=== PATIENT | female | born 1940 | race Caucasian/White ===

== ENCOUNTER → 2017-04-12 | Outpatient (CLI) | payer OTHER | END | disposition home or self-care (01) | LOC: NUC 07:39 | DX: R10.13 Epigastric pain (principal); R19.7 Diarrhea, unspecified; K30 Functional dyspepsia | CPT/HCPCS: 78226; A9537 ==

== ENCOUNTER 2017-07-04 19:00 | Inpatient (IN) | payer OTHER ==
[~2017-07-04] VITALS: Ht 152.4 cm; Wt 60.6 kg
[2017-07-04] MEDS ORDERED: PANTOPRAZOLE SO40 MG PO (19:11)
[2017-07-04 20:33] LABS: EOSINOPHIL (%) 0.1 % (0-5); HEMATOCRIT 41.7 % (36.0-46.0); IMMATURE GRANULOCYTE (%) 0.6 % (0.0-0.7); IMMATURE GRANULOCYTE COUNT 0.1 K/uL; LYMPHOCYTE COUNT 0.5 K/uL (1.0-2.8); MCH 30.6 PG (29.0-34.0); MCV 87.4 FL (83-99); MEAN PLAT.VOLUME 8.9 uM^3 (9.5-12.4); MONOCYTE (%) 2.9 % (3-12); MONOCYTE COUNT 0.4 K/uL (0-0.8); NEUTROPHIL (%) 92.7 % (45-76); PLATELET COUNT 213 K/uL (156-360); RBC DIS.WIDTH-SD 41.5 % (39-53); RED BLOOD COUNT 4.77 M/uL (3.80-5.20)
[2017-07-04 20:42] LABS: CHLORIDE 104 mEq/L (99-109); POTASSIUM 3.2 mEq/L (3.7-5.4); SODIUM 137 mEq/L (136-147)
[2017-07-04 20:44] LABS: GLUCOSE 175 mg/dL (70-99)
[2017-07-04 20:46] LABS: ANION GAP 13 MEQ/L (2-14); TOTAL BILIRUBIN 0.9 mg/dL (0.0-1.0)
[2017-07-04 20:48] LABS: ALKALINE PHOSPHATASE 80 IU/L (3-129); GFR ESTIMATE (CALCULATED) 58 mL/min/
[2017-07-04 20:49] LABS: UREA NITROGEN (BUN) 14 mg/dL (9-23)
[2017-07-04 20:54] LABS: TROP-I INTERPRETATION NEGATIVE; TROPONIN-I < 0.01 ng/mL (0.0-0.30)
[2017-07-04 23:29] LABS: ADD MIUA? YES; BILIRUBIN NEGATIVE; BLOOD NEGATIVE; COLOR STRAW ((YELLOW)); GLUCOSE (STRIP) NEGATIVE; KETONES NEGATIVE; LEUKOCYTES TRACE; NITRITE NEGATIVE; PROTEIN (STRIP) NEGATIVE; SPECIFIC GRAVITY 1.005 (1.000-1.030); UROBILINOGEN 0.2 MG/DL (0.2-1.0)
[2017-07-04 23:29] LABS: CARBON DIOXIDE (BICARBONATE) 23.4 MEQ/L (20-31)
[2017-07-04] MEDS ORDERED: CEFDINIR300 MG PO (23:35)
[2017-07-04] MEDS ORDERED: COLACE100 MG PO (23:35)
[2017-07-04 23:45] LABS: BACTERIA NONE SEEN /HPF; EPITHELIAL CELLS RARE /HPF; MUCUS TRACE /LPF; RED BLOOD CELLS 0-5 /HPF (0-5); UCUL ADDED? NO; WHITE BLOOD CELLS 0-5 /HPF (0-5)
[2017-07-05 00:37] VITALS: BP 130/60
[2017-07-05 04:03] VITALS: BP 117/58
[2017-07-05 06:18] LABS: POINT-OF-CARE METER ID UU14208750
[2017-07-05 07:31] VITALS: BP 132/61
[2017-07-05 09:32] LABS: HEMATOCRIT 38.6 % (36.0-46.0); MCH 30.1 PG (29.0-34.0); MCHC 34.5 G/DL (30.0-36.0); MCV 87.3 FL (83-99); PLATELET COUNT 232 K/uL (156-360); RBC DIS.WIDTH-CV 13.1 % (11.8-14.6); RBC DIS.WIDTH-SD 41.7 % (39-53); RED BLOOD COUNT 4.42 M/uL (3.80-5.20); WHITE BLOOD COUNT 11.1 K/uL (4.1-10.2)
[2017-07-05 09:59] LABS: ANION GAP 11 MEQ/L (2-14); CHLORIDE 108 MEQ/L (99-109); GFR ESTIMATE (CALCULATED) > 59 mL/min/; GLUCOSE 170 mg/dL (70-99); POTASSIUM 3.8 MEQ/L (3.7-5.4); SAMPLE HEMOLYSIS CHECK 0; SAMPLE ICTERIC CHECK 0; SAMPLE LIPEMIA CHECK 0; SODIUM 141 MEQ/L (136-147); UREA NITROGEN (BUN) 12 mg/dL (9-23)
[2017-07-05 10:17] LABS: Estimated Average Glucose 105 mg/dL (70-123); HEMOGLOBIN A1c (GLYCOHEMOGLOB) 5.3 % HGB (Below 5.7)
[2017-07-05 11:39] VITALS: BP 121/57
[2017-07-05 15:18] VITALS: BP 108/54
[2017-07-05 19:10] VITALS: BP 123/60
[2017-07-06] VITALS (7 sets, daily range): BP systolic 99–144; BP diastolic 53–68
[2017-07-06 06:58] LABS: MCH 31.5 PG (29.0-34.0); MCHC 35.3 G/DL (30.0-36.0); MCV 89.2 FL (83-99); MEAN PLAT.VOLUME 9.5 uM^3 (9.5-12.4); PLATELET COUNT 226 K/uL (156-360); RBC DIS.WIDTH-CV 13.2 % (11.8-14.6); RBC DIS.WIDTH-SD 43.3 % (39-53); RED BLOOD COUNT 4.26 M/uL (3.80-5.20); WHITE BLOOD COUNT 15.4 K/uL (4.1-10.2)
[2017-07-06 07:19] LABS: ANION GAP 7 MEQ/L (2-14); CHLORIDE 105 MEQ/L (99-109); GFR ESTIMATE (CALCULATED) 58 mL/min/; GLUCOSE 140 mg/dL (70-99); POTASSIUM 4.2 MEQ/L (3.7-5.4); SAMPLE HEMOLYSIS CHECK 0; SAMPLE ICTERIC CHECK 0; SAMPLE LIPEMIA CHECK 0; SODIUM 141 MEQ/L (136-147); UREA NITROGEN (BUN) 17 mg/dL (9-23)
[2017-07-07 04:26] VITALS: BP 120/60
[2017-07-07 07:24] VITALS: BP 117/56
[2017-07-07 11:21] VITALS: BP 146/71
[2017-07-07 12:03] LABS: EOSINOPHIL (%) 0 % (0-5); HEMATOCRIT 40.4 % (36.0-46.0); IMMATURE GRANULOCYTE (%) 1.2 % (0.0-0.7); IMMATURE GRANULOCYTE COUNT 0.2 K/uL; INSTRUMENT ABS NEUTROPHIL CT 11.5 K/uL; LYMPHOCYTE COUNT 0.7 K/uL (1.0-2.8); MCH 31.4 PG (29.0-34.0); MCHC 35.6 G/DL (30.0-36.0); MEAN PLAT.VOLUME 9.3 uM^3 (9.5-12.4); MONOCYTE (%) 2.2 % (3-12); MONOCYTE COUNT 0.3 K/uL (0-0.8); NEUTROPHIL (%) 91.3 % (45-76); NEUTROPHIL COUNT 11.5 K/uL (1.8-6.4); PLATELET COUNT 247 K/uL (156-360); RBC DIS.WIDTH-SD 41.7 % (39-53); RED BLOOD COUNT 4.59 M/uL (3.80-5.20); WHITE BLOOD COUNT 12.6 K/uL (4.1-10.2)
[2017-07-07 12:24] LABS: ADD MIUA? NO; BILIRUBIN NEGATIVE; BLOOD NEGATIVE; COLOR YELLOW ((YELLOW)); GLUCOSE (STRIP) NEGATIVE; KETONES NEGATIVE; LEUKOCYTES NEGATIVE; NITRITE NEGATIVE; PROTEIN (STRIP) NEGATIVE; SPECIFIC GRAVITY 1.013 (1.000-1.030); UCUL ADDED? NO; UROBILINOGEN 0.2 MG/DL (0.2-1.0)
[2017-07-07 12:26] LABS: ALKALINE PHOSPHATASE 57 IU/L (3-129); ANION GAP 10 MEQ/L (2-14); CHLORIDE 103 MEQ/L (99-109); GFR ESTIMATE (CALCULATED) 52 mL/min/; GLUCOSE 185 mg/dL (70-99); POTASSIUM 3.8 MEQ/L (3.7-5.4); SAMPLE HEMOLYSIS CHECK 0; SAMPLE ICTERIC CHECK 0; SAMPLE LIPEMIA CHECK 0; SODIUM 140 MEQ/L (136-147); TOTAL BILIRUBIN 0.5 MG/DL (0.0-1.0); UREA NITROGEN (BUN) 22 mg/dL (9-23)
[2017-07-07 16:19] VITALS: BP 139/63
[2017-07-08 07:35] VITALS: BP 122/60
[2017-07-08 15:10] VITALS: BP 157/70
[2017-07-08 21:35] LABS: POINT-OF-CARE METER ID UU14208750
[2017-07-08 23:10] VITALS: BP 137/65
[2017-07-09 07:46] VITALS: BP 143/70
[2017-07-09 15:40] VITALS: BP 127/62
[2017-07-09 23:45] VITALS: BP 135/67
[2017-07-10 07:50] VITALS: BP 106/54
[2017-07-10 19:04] VITALS: BP 117/58
[2017-07-10 23:58] VITALS: BP 108/57
[2017-07-11 06:55] VITALS: BP 135/61
[2017-07-11 10:34] LABS: ADD MIUA? NO; BILIRUBIN NEGATIVE; BLOOD NEGATIVE; COLOR STRAW ((YELLOW)); GLUCOSE (STRIP) NEGATIVE; KETONES NEGATIVE; LEUKOCYTES NEGATIVE; NITRITE NEGATIVE; PROTEIN (STRIP) NEGATIVE; SPECIFIC GRAVITY 1.009 (1.000-1.030); UROBILINOGEN 0.2 MG/DL (0.2-1.0)
[2017-07-11 15:18] VITALS: BP 135/70
[2017-07-11 22:42] VITALS: BP 123/81
[2017-07-12] MEDS ORDERED: HYDROXYZINE PAM25 MG PO (06:51)
[2017-07-12] MEDS ORDERED: FAMOTIDINE20 MG PO (06:51)
[2017-07-12] MEDS ORDERED: PREDNISONE20 MG PO (06:52)
[2017-07-12] MEDS ORDERED: PREMARIN VAGI42.5 GM TP (06:54)
[2017-07-12 07:35] VITALS: BP 126/61
== END 2017-07-12 13:29 | disposition home or self-care (01) | DRG 204 ==
LOC: EME → EDBD 19:00 → EME 19:00 → 2EASTP 23:14 → EDOF 23:14 → ENRESERV 23:15 → 2EASTP 07-05 00:26
PROVIDERS: Emergency Medicine; Hospitalist; Internal Medicine; Physician Assistant Medical
DX: R06.02 Shortness of breath (principal); R60.0 Localized edema; R13.10 Dysphagia, unspecified; T37.8X5A Adverse effect of other specified systemic anti-infectives and antiparasitics, initial encounter; R65.10 Systemic inflammatory response syndrome (SIRS) of non-infectious origin without acute organ dysfunction; N30.90 Cystitis, unspecified without hematuria; B96.20 Unspecified Escherichia coli [E. coli] as the cause of diseases classified elsewhere; B95.2 Enterococcus as the cause of diseases classified elsewhere; E87.6 Hypokalemia; E86.0 Dehydration; L27.1 Localized skin eruption due to drugs and medicaments taken internally; L53.9 Erythematous condition, unspecified; T40.2X5A Adverse effect of other opioids, initial encounter; K59.00 Constipation, unspecified; R73.9 Hyperglycemia, unspecified; R00.0 Tachycardia, unspecified; R11.2 Nausea with vomiting, unspecified; D72.829 Elevated white blood cell count, unspecified; R42 Dizziness and giddiness; K58.0 Irritable bowel syndrome with diarrhea; N95.2 Postmenopausal atrophic vaginitis; Z87.440 Personal history of urinary (tract) infections; Z88.1 Allergy status to other antibiotic agents
CPT/HCPCS: 71010; 74176; 80048; 80053; 81003; 82803; 82948; 83036; 83605; 83735; 84484; 85025; 85027; 87077; 87086; 87186; 87493; 93005; 99281; 99285; J1100; J1200; J1815; J2405; J2930; J7030; J7050; J7120; J7512; Q0177; S0028; S0073